=== PATIENT | female | born 1940 | race Caucasian/White ===

== ENCOUNTER 2016-09-10 08:40 | Outpatient (RCR) | payer MEDICARE | END 2016-10-14 | disposition home or self-care (01) | LOC: ONC 08:40 | PROVIDERS: ATTEND Radiology Radiation Oncology | DX: Z51.0 Encounter for antineoplastic radiation therapy (principal); D39.0 Neoplasm of uncertain behavior of uterus | CPT/HCPCS: 77295; 77332; 77334; 77417; 99212 ==